=== PATIENT | female | born 1990 | race Two or more races ===

== ENCOUNTER 2016-12-26 09:32 | Emergency (ER) | payer BC ==
[2016-12-26 09:47] VITALS: BP 144/99
[2016-12-26] MEDS ORDERED: Ondansetron 4 MG/2 ML SDV IVPUSH ONE (10:03)
[2016-12-26] MEDS ORDERED: Sodium Chloride 0.9% 10 ML Syringe FLUSH PRN (10:03)
[2016-12-26] MEDS ORDERED: Famotidine 20 MG/2 ML SDV IVPUSH ONE (10:05)
[2016-12-26] MEDS ORDERED: Alum Hydrox/Mag Hydrox/Simeth 30 ML, Lidocaine 2% 15 ML PO ONE ×4 (10:06→12:43)
[2016-12-26] MEDS ORDERED: HYDROmorphone 1 MG/ML Syringe IVPUSH ONE ×2 (10:07→12:20)
[2016-12-26] MEDS ORDERED: Sodium Chloride 0.9% 1,000 ML IV SCH (10:15)
--- NOTE | 2016-12-26 11:07 | US ---
Limited abdominal ultrasound: Multiple real-time images were obtained of the right upper abdomen. Liver shows no focal abnormality. Gallbladder shows no gallstones. No gallbladder wall thickening or biliary duct dilatation is seen. Right kidney shows no hydronephrosis or mass and has a length of 12.1 cm. Pancreas is obscured from bowel gas. Inferior vena cava is patent. Portal vein shows normal hepatopedal flow. Impression: 1. Obscured pancreas due to bowel gas. 2. No abnormality is identified on right upper quadrant abdominal ultrasound. Diagnostic code #1
--- NOTE | 2016-12-26 13:14 | EDM.PDOC ---
ED HPI GENERAL MEDICAL PROBLEM - General Chief Complaint: Back Pain or Injury Stated Complaint: UPPER BACK PAIN Time Seen by Provider: 12/26/16 09:50 Source of Information: Reports: Patient History Limitations: Reports: No Limitations - History of Present Illness INITIAL COMMENTS - FREE TEXT/NARRATIVE: The patient presents with back pain and epigastric pain for a few days. She has been dealing with bad reflux for almost 2 years. She had an EGD done in [place] by Dr Basilio on June 2015. There was gastritis and a hital hernia. She was put on omeprazole and zantac. She did okay for while. Her insurance ran out and she could not get the omeprazole and it came back even stronger. She has no fever, chills, cough, chest pain, or shortness of breath. She has nausea but no vomiting. Onset: Gradual Duration: Week(s): Location: Reports: Abdomen, Back Quality: Reports: Sharp Severity: Severe Improves with: Reports: None Worsens with: Reports: None Associated Symptoms: Reports: Nausea/Vomiting. Denies: Cough, Fever/Chills, Headaches, Shortness of Breath Right Upper Back Pain Score (Numeric/FACES): 6 - Related Data Allergies Allergy/AdvReac Type Severity Reaction Status Date / Time No Known Allergies Allergy Verified 12/26/16 09:47 Home Meds: Home Meds Ranitidine [Zantac] 1 tab PO TID 06/01/15 [History] Omeprazole 40 mg PO DAILY #60 cap.cr 12/26/16 [Rx] Ondansetron [Zofran ODT] 4 mg PO Q6H PRN #20 tab.dis 12/26/16 [Rx] oxyCODONE HCl/Acetaminophen [Percocet 5-325 mg Tablet] 1 - 2 each PO Q6HR PRN # 20 tablet 12/26/16 [Rx] Past Medical History HEENT History: Reports: Impaired Vision Other HEENT History: not currently wearing glasses, lost them Cardiovascular History: Reports: None Respiratory History: Reports: None Gastrointestinal History: Reports: GERD, Hiatal Hernia, Other (See Below) Other Gastrointestinal History: Patient states "I have diarrhea like 15 times a day. I have been this way for years, but I have noticed it starting to interfer with my life within the last year." Genitourinary History: Reports: Other (See Below) Other Genitourinary History: states has frequent urination [employer]IN[employer] PARASIT[employer]IST History: Reports: None Musculoskeletal History: Reports: Back Pain, Chronic, Fibromyalgia Neurological History: Reports: Headaches, Chronic, Migraines, Seizure Other Neuro History: states "had epilepsy", has not has a seizure for 10 years Psychiatric History: Reports: Anxiety, Depression Endocrine/Metabolic History: Reports: Obesity/BMI 30+ Hematologic History: Reports: None Immunologic History: Reports: None Oncologic (Cancer) History: Reports: None Dermatologic History: Reports: None - Infectious Disease History Infectious Disease History: Reports: None - Past Surgical History Head Surgeries/Procedures: Reports: None Respiratory Surgical History: Reports: None GI Surgical History: Reports: None Endocrine Surgical History: Reports: None Oncologic Surgical History: Reports: None Dermatological Surgical History: Reports: None Social & Family History - Family History Family Medical History: Noncontributory - Tobacco Use Smoking Status *Q: Current Every Day Smoker Years of Tobacco use: 10 Packs/Tins Daily: 0.5 - Caffeine Use Caffeine Use: Reports: Coffee - Recreational Drug Use Recreational Drug Use: Yes Drug Use in Last 12 Months: Yes Recreational Drug Type: Reports: Marijuana/Hashish Recreational Drug Use Frequency: Rarely ED ROS GENERAL - Review of Systems Review Of Systems: See Below Constitutional: Reports: No Symptoms HEENT: Reports: No Symptoms Respiratory: Reports: No Symptoms Cardiovascular: Reports: No Symptoms Endocrine: Reports: No Symptoms GI/Abdominal: Reports: Abdominal Pain, Nausea. Denies: Diarrhea, Vomiting : Reports: No Symptoms Musculoskeletal: Reports: Back Pain Skin: Reports: No Symptoms Neurological: Reports: No Symptoms ED EXAM, UPPER BACK/NECK PAIN - Physical Exam Exam: See Below Exam Limited By: No Limitations General Appearance: Alert, No Apparent Distress Ears Exam: Normal External Exam Nose Exam: Normal Inspection Head Exam: Atraumatic, Normocephalic Neck Exam: Non-Tender Cardiovascular/Respiratory: Regular Rate, Rhythm, No M/R/G, Normal Peripheral Pulses, Normal Breath Sounds, No Respiratory Distress GI/Abdominal: Soft, No Organomegaly, No Mass, Tender (Moderate to the epigastric region) Back Exam: Normal Inspection Extremities: Normal Inspection Course - Vital Signs Last Recorded V/S: Last Vital Signs Temp 97.4 F 12/26/16 09:43 Pulse 88 12/26/16 09:43 Resp 12 12/26/16 09:43 BP 144/99 H 12/26/16 09:43 Pulse Ox 99 12/26/16 09:43 - Orders/Labs/Meds Orders: Active Orders 24 hr Category Date Time Status Cardiac Monitoring [RC] . DIRECTED Care 12/26/16 10:03 Active Peripheral IV Care [RC] . DIRECTED Care 12/26/16 10:03 Active Chest 2V [CR] Stat Exams 12/26/16 10:04 Taken ED Antiemetic Medication Reflex [OM.PC] Stat Oth 12/26/16 10:04 Ordered Peripheral IV Insertion Adult [OM.PC] Stat Oth 12/26/16 10:03 Ordered Labs: Laboratory Tests 12/26/16 12/26/16 12/26/16 Range/Units 10:16 11:00 11:00 WBC 8.47 (3.98-10.04) K/mm3 RBC 5.18 (3.98-5.22) M/mm3 Hgb 12.9 (11.2-15.7) gm/L Hct 40.0 (34.1-44.9) % MCV 77.2 L (79.4-94.8) fl MCH 24.9 L (25.6-32.2) pg MCHC 32.3 (32.2-35.5) g/dl RDW Std Deviation 39.8 (36.4-46.3) fL Plt Count 363 (182-369) K/mm3 MPV 9.4 (9.4-12.3) fl Neut % (Auto) 63.5 (34.0-71.1) % Lymph % (Auto) 29.9 (19.3-51.7) % [place] % (Auto) 5.9 (4.7-12.5) % Eos % (Auto) 0.5 L (0.7-5.8) Baso % (Auto) 0.1 (0.1-1.2) % Neut # (Auto) 5.38 (1.56-6.13) K/mm3 Lymph # (Auto) 2.53 (1.18-3.74) K/mm3 [place] # (Auto) 0.50 H (0.24-0.36) K/mm3 Eos # (Auto) 0.04 (0.04-0.36) K/mm3 Baso # (Auto) 0.01 (0.01-0.08) K/mm3 Sodium 142 (136-145) mEq/L Potassium 4.1 (3.5-5.1) mEq/L Chloride 105 (98-107) mEq/L Carbon Dioxide 25 (21-32) mEq/L Anion Gap 16.1 H (5-15) BUN 11 (7-18) mg/dL Creatinine 0.8 (0.55-1.02) mg/dL Est Cr Clr Drug Dosing 100.63 mL/min Estimated GFR (MDRD) > 60 (>60) mL/min BUN/Creatinine Ratio 13.8 L (14-18) Glucose 98 (74-106) mg/dL Calcium 9.5 (8.5-10.1) mg/dL Total Bilirubin 0.3 (0.2-1.0) mg/dL AST 18 (15-37) U/L ALT 27 (14-59) U/L Alkaline Phosphatase 77 (46-116) U/L Total Protein 7.6 (6.4-8.2) g/dl Albumin 3.9 (3.4-5.0) g/dl Globulin 3.7 gm/dL Albumin/Globulin Ratio 1.1 (1-2) Lipase 138 (73-393) U/L HCG, Qual (NEGATIVE) Urine Color Yellow (Yellow) Urine Appearance Clear (Clear) Urine pH 6.5 (5.0-8.0) Ur Specific [place] 1.015 (1.005-1.030) Urine Protein Negative (Negative) Urine Glucose (UA) Negative (Negative) Urine Ketones Negative (Negative) Urine Occult Blood 1+ H (Negative) Urine Nitrite Negative (Negative) Urine Bilirubin Negative (Negative) Urine Urobilinogen 0.2 (0.2-1.0) Ur Leukocyte Esterase Negative (Negative) Urine RBC 5-10 H (0-5) /hpf Urine WBC 0-5 (0-5) /hpf Ur Epithelial Cells 5-10 H (0-5) /hpf Urine Bacteria Few (FEW) /hpf Urine Mucus Not seen (FEW) /hpf H. pylori IgG Antibody (NEGATIVE) 12/26/16 12/26/16 Range/Units 11:00 11:00 WBC (3.98-10.04) K/mm3 RBC (3.98-5.22) M/mm3 Hgb (11.2-15.7) gm/L Hct (34.1-44.9) % MCV (79.4-94.8) fl MCH (25.6-32.2) pg MCHC (32.2-35.5) g/dl RDW Std Deviation (36.4-46.3) fL Plt Count (182-369) K/mm3 MPV (9.4-12.3) fl Neut % (Auto) (34.0-71.1) % Lymph % (Auto) (19.3-51.7) % [place] % (Auto) (4.7-12.5) % Eos % (Auto) (0.7-5.8) Baso % (Auto) (0.1-1.2) % Neut # (Auto) (1.56-6.13) K/mm3 Lymph # (Auto) (1.18-3.74) K/mm3 [place] # (Auto) (0.24-0.36) K/mm3 Eos # (Auto) (0.04-0.36) K/mm3 Baso # (Auto) (0.01-0.08) K/mm3 Sodium (136-145) mEq/L Potassium (3.5-5.1) mEq/L Chloride (98-107) mEq/L Carbon Dioxide (21-32) mEq/L Anion Gap (5-15) BUN (7-18) mg/dL Creatinine (0.55-1.02) mg/dL Est Cr Clr Drug Dosing mL/min Estimated GFR (MDRD) (>60) mL/min BUN/Creatinine Ratio (14-18) Glucose (74-106) mg/dL Calcium (8.5-10.1) mg/dL Total Bilirubin (0.2-1.0) mg/dL AST (15-37) U/L ALT (14-59) U/L Alkaline Phosphatase (46-116) U/L Total Protein (6.4-8.2) g/dl Albumin (3.4-5.0) g/dl Globulin gm/dL Albumin/Globulin Ratio (1-2) Lipase (73-393) U/L HCG, Qual Negative (NEGATIVE) Urine Color (Yellow) Urine Appearance (Clear) Urine pH (5.0-8.0) Ur Specific [place] (1.005-1.030) Urine Protein (Negative) Urine Glucose (UA) (Negative) Urine Ketones (Negative) Urine Occult Blood (Negative) Urine Nitrite (Negative) Urine Bilirubin (Negative) Urine Urobilinogen (0.2-1.0) Ur Leukocyte Esterase (Negative) Urine RBC (0-5) /hpf Urine WBC (0-5) /hpf Ur Epithelial Cells (0-5) /hpf Urine Bacteria (FEW) /hpf Urine Mucus (FEW) /hpf H. pylori IgG Antibody Negative (NEGATIVE) Meds: Medications Discontinued Medications Generic Name Dose Route Start Last Admin Trade Name Freq PRN Reason Stop Dose Admin Al Hydroxide/Mg Hydroxide 30 0 ml 12/26/16 10:06 12/26/16 11:07 ml/ Lidocaine HCl 15 ml PO 12/26/16 10:07 45 ml ONETIME ONE Administration Al Hydroxide/Mg Hydroxide 30 0 ml 12/26/16 12:43 12/26/16 12:53 ml/ Lidocaine HCl 15 ml PO 12/26/16 12:44 45 ml ONETIME ONE Administration Famotidine 20 mg 12/26/16 10:05 12/26/16 11:06 Pepcid IVPUSH 12/26/16 10:06 20 mg ONETIME ONE Administration Hydromorphone HCl 1 mg 12/26/16 10:07 12/26/16 11:04 Dilaudid IVPUSH 12/26/16 10:08 1 mg ONETIME ONE Administration Hydromorphone HCl 1 mg 12/26/16 12:20 12/26/16 12:38 Dilaudid IVPUSH 12/26/16 12:21 1 mg ONETIME ONE Administration Sodium Chloride 1,000 mls @ 1,000 mls/hr 12/26/16 10:15 12/26/16 11:03 Normal Saline IV 1,000 mls/hr .BOLUS KIMBERLEE Administration Ondansetron HCl 4 mg 12/26/16 10:03 12/26/16 11:04 Zofran IVPUSH 12/26/16 10:04 4 mg ONETIME ONE Administration Sodium Chloride 10 ml 12/26/16 10:03 12/26/16 11:08 Saline Flush FLUSH 10 ml ASDIRECTED PRN Administration Keep Vein Open - Re-Assessments/Exams Free Text/Narrative Re-Assessment/Exam: 12/26/16 14:56 I ordered an IV NS 1L bolus, zofran 4mg IV, GI cocktail, pepcid 20mg IV and dilaudid. Her CBC and CMP look good. Her lipase is negative. Her HCG is negative. Her UA had some blood. She has no CVA tenderness with this. I do not feel this is a kidney stone. The pain is to high. Her US shows no gallstones on wall thickening. She has more pain so I ordered dilaudid 1mg IV. I talked with Dr Kasper out general surgeon and he would be happy to see her but if she needed a surgery to help with this he does not do them. I called [facility] in [place] and got her an appointment with Dr Andres the general surgeon for Saturday at 1pm. Departure - Departure Time of Disposition: 13:10 Disposition: Home, Self-Care 01 Condition: Good Clinical Impression: Hiatal hernia, Upper back pain GERD (gastroesophageal reflux disease) Qualifiers: Esophagitis presence: with esophagitis Qualified Code(s): K21.0 - Gastro- esophageal reflux disease with esophagitis Gastritis Qualifiers: Gastritis type: unspecified gastritis Chronicity: chronic Gastritis bleeding: without bleeding Qualified Code(s): K29.50 - Unspecified chronic gastritis without bleeding - Discharge Information Prescriptions: oxyCODONE HCl/Acetaminophen [Percocet 5-325 mg Tablet] 1 - 2 each PO Q6HR PRN # 20 tablet PRN Reason: Pain Omeprazole 40 mg PO DAILY #60 cap.cr Ondansetron [Zofran ODT] 4 mg PO Q6H PRN #20 tab.dis PRN Reason: Nausea/Vomiting Instructions: Food Choices for Gastroesophageal Reflux Disease, Adult, Back Pain, Adult, Hiatal Hernia, Gastroesophageal Reflux Disease, Adult Referrals: PCP,None [Primary Care Provider] - George Andres MD [Ordering Only Provider] - Forms: ED Department Discharge Additional Instructions: Take the omeprazole 40mg daily. Take the percocet as needed for pain. Take the zofran as needed for nausea and vomiting. Follow up with Dr Andres at [facility] on SaturdayDecember 31 at 1pm [place] time. Come early to register. Pleas return if you are worse. - My Orders Last 24 Hours: My Active Orders 12/26/16 10:03 Cardiac Monitoring [RC] . DIRECTED Peripheral IV Care [RC] . DIRECTED Peripheral IV Insertion Adult [OM.PC] Stat 12/26/16 10:04 Chest 2V [CR] Stat ED Antiemetic Medication Reflex [OM.PC] Stat - Assessment/Plan Last 24 Hours: My Active Orders 12/26/16 10:03 Cardiac Monitoring [RC] . DIRECTED Peripheral IV Care [RC] . DIRECTED Peripheral IV Insertion Adult [OM.PC] Stat 12/26/16 10:04 Chest 2V [CR] Stat ED Antiemetic Medication Reflex [OM.PC] Stat
--- NOTE | 2016-12-26 14:59 | CR ---
Chest: Two views of the chest are obtained. Comparison: No previous study. Heart size and mediastinum are normal. Lungs are clear. Bony structures are unremarkable. Impression: 1. Nothing acute is seen on two-view chest x-ray. Diagnostic code #1
== END 2016-12-26 13:42 | disposition home or self-care (01) ==
LOC: JD.ED 09:32
DX: K29.50 Unspecified chronic gastritis without bleeding (principal); K21.0 Gastro-esophageal reflux disease with esophagitis; K44.9 Diaphragmatic hernia without obstruction or gangrene; M54.6 Pain in thoracic spine; F17.210 Nicotine dependence, cigarettes, uncomplicated; Z79.899 Other long term (current) drug therapy
CPT/HCPCS: 36415; 71020; 76705; 80053; 81001; 83690; 84703; 85025; 86677; 96361; 96374; 96375; 96376; 99284; A9270; J1170; J2405; J7040; J7050